=== PATIENT | female | born 1950 | race Caucasian/White ===

== ENCOUNTER 2021-11-20 11:48 | Observation (INO) ==
[2021-11-20] MEDS ORDERED: DEXTROSE 10% 250 ML BAG IV PRN (13:33)
[2021-11-20] MEDS ORDERED: GLUCAGON 1 MG VIAL IM PRN (13:33)
[2021-11-20] MEDS ORDERED: hydrALAZINE 20 MG/1 ML VIAL IV PRN (13:36)
[2021-11-20] MEDS ORDERED: DOCUSATE SODIUM 100 MG CAPSULE PO PRN (13:36)
[2021-11-20] MEDS ORDERED: ACETAMINOPHEN 325 MG TABLET PO PRN (13:36)
[2021-11-20] MEDS ORDERED: ONDANSETRON 4 MG/2 ML VIAL IV PRN (13:36)
[2021-11-20] MEDS: SODIUM CHLORIDE 0.9% 1,000 ML IV SCH (14:05)
[2021-11-20 14:37] LABS: Basophils % 0.6 % (0.0-0.8); Eosinophils % 0.3 % (0.00-10.9); Hemoglobin 7.8 GM/DL (12.0-16.0); Lymphocytes # 1.8 10*3/uL (1.4-4.0); Lymphocytes % 54.7 % (21.3-54.2); Mean Corpuscular HGB Conc 33.9 GM/DL (32-36); Mean Corpuscular Volume 91.6 FL (87-102); Monocytes # 0.4 10*3/uL (0.11-0.8); Monocytes % 12.7 % (1.7-12.7); Neutrophils % 28.7 % (38.7-73.9); Platelet Count 250 T/CUMM (130-400); Red Blood Count 2.51 MC/CUMM (3.8-5.5); Red Cell Distribution Width 20.1 % (9.3-17.3); White Blood Count 3.3 T/CUMM (4-12)
[2021-11-20 14:51] LABS: Albumin 2.7 G/DL (3.4-5.0); Bilirubin,Total 0.5 MG/DL (0.20-1.00); Calcium 7.9 MG/DL (8.5-10.1); Potassium 3.9 MMOL/L (3.5-5.1); Total Protein 6.3 G/DL (6.4-8.2)
[2021-11-20 14:55] LABS: % Iron Saturation 17.6 % (18-50); Ferritin 1612.8 ng/mL (8-252)
[2021-11-20 15:15] LABS: Folate > 24.00 NG/ML (5.38-24.0); Vitamin B12 889 PG/ML (211-911)
[2021-11-20] MEDS ORDERED: SODIUM CHLORIDE 0.9% 1,000 ML IV PRN ×2 (15:45→22:06)
[2021-11-20] MEDS ORDERED: MAGNESIUM SULF RIDER 2 GM/50 ML PREMIX IV ONE (15:46)
[2021-11-20] MEDS: INSULIN LISPRO 100 UNIT/ML SUBCUT SCH ×2 (16:22→21:33)
[2021-11-20] MEDS: CHOLECALCIFEROL 5,000 UNIT TABLET PO SCH (16:29)
[2021-11-21 01:10] LABS: Hyaline Casts,Urine 1 /LPF (0-3); Squamous Epithelial Cell,Urine Occasional /HPF (0-10)
[2021-11-21 01:11] LABS: Bilirubin,Urine Negative (Negative); Blood, Urine Negative (Negative); Glucose,Urine (UA) Negative (Negative); Ketones,Urine Negative (Negative); Nitrite,Urine Negative (Negative); Protein,Urine Negative (Negative); Urine Appearance Clear (Clear); Urine Color Yellow (Yellow); Urine Urobilinogen 0.2 eU/dL (<2.0)
[2021-11-21 05:29] LABS: Eosinophils % 0.3 % (0.00-10.9); Hematocrit 24.8 VOL% (35.7-47.0); Hemoglobin 8.2 GM/DL (12.0-16.0); Immature Granulocytes Absolute 0.09 #; Lymphocytes # 1.3 10*3/uL (1.4-4.0); Lymphocytes % 44.3 % (21.3-54.2); Mean Corpuscular HGB Conc 33.1 GM/DL (32-36); Mean Corpuscular Volume 92.2 FL (87-102); Mean Platelet Volume 10.7 FL (9.6-12.0); Monocytes # 0.6 10*3/uL (0.11-0.8); Monocytes % 18.6 % (1.7-12.7); Neutrophils % 32.8 % (38.7-73.9); Platelet Count 234 T/CUMM (130-400); Red Blood Count 2.69 MC/CUMM (3.8-5.5); Red Cell Distribution Width 19.8 % (9.3-17.3)
[2021-11-21 05:53] LABS: Band Neutrophils 2 % (0-10); Eosinophils 1 % (0-10); Hypochromia Slight; Lymphocytes 40 % (20-55); Microcytosis Slight; Platelet Estimate Adequate; Total Cells Counted 100
[2021-11-21 05:57] LABS: Albumin 2.5 G/DL (3.4-5.0); Bilirubin,Total 0.6 MG/DL (0.20-1.00); Calcium 8.3 MG/DL (8.5-10.1); Osmolality,Calculated 278.5 MOS/KG (273-304); Potassium 4.1 MMOL/L (3.5-5.1); Risk Ratio 6.09; Thyroid Stimulating Hormone 1.37 uIU/ml (0.358-3.74); Total Protein 5.7 G/DL (6.4-8.2); VLDL Cholesterol 44.4 MG/DL
[2021-11-21] MEDS ORDERED: DIPHENOXYLATE/ATROPINE 2.5-0.025 MG TABLET PO PRN (08:41)
[2021-11-21] MEDS ORDERED: ONDANSETRON 4 MG TABLET PO PRN (08:41)
[2021-11-21] MEDS: INSULIN LISPRO 100 UNIT/ML SUBCUT SCH ×4 (09:10→21:51)
[2021-11-21] MEDS: SODIUM CHLORIDE 0.9% 1,000 ML IV SCH ×3 (10:14→21:57)
[2021-11-21] MEDS: FLUCONAZOLE INJ 200 MG/100 ML PREMIX IV SCH (10:15)
[2021-11-21] MEDS: FERRIC GLUCONATE COMPLEX 125 MG in SODIUM CHLORIDE 0.9% 100 ML IV SCH (10:15)
[2021-11-21] MEDS: FLUTICASONE 50 MCG NASAL SPRAY 16 GM BOTTLE BOTH NARES SCH ×2 (10:16→21:51)
[2021-11-21] MEDS: RANOLAZINE 500 MG TABLET PO SCH ×2 (10:16→21:53)
[2021-11-21] MEDS: GABAPENTIN 100 MG CAPSULE PO SCH ×2 (10:16→21:53)
[2021-11-21] MEDS: CHOLECALCIFEROL 5,000 UNIT TABLET PO SCH (10:16)
[2021-11-21] MEDS: PANTOPRAZOLE 40 MG TABLET PO SCH (10:16)
[2021-11-22] MEDS: RANOLAZINE 500 MG TABLET PO SCH ×2 (07:43→11:02)
[2021-11-22] MEDS: SODIUM CHLORIDE 0.9% 1,000 ML IV SCH (07:43)
[2021-11-22] MEDS: GABAPENTIN 100 MG CAPSULE PO SCH ×2 (07:44→11:02)
[2021-11-22] MEDS: PANTOPRAZOLE 40 MG TABLET PO SCH ×2 (07:44→11:02)
[2021-11-22] MEDS: INSULIN LISPRO 100 UNIT/ML SUBCUT SCH (08:02)
[2021-11-22] MEDS: FLUTICASONE 50 MCG NASAL SPRAY 16 GM BOTTLE BOTH NARES SCH (08:11)
[2021-11-22 08:22] VITALS: BP 152/66
[2021-11-22] MEDS: FERRIC GLUCONATE COMPLEX 125 MG in SODIUM CHLORIDE 0.9% 100 ML IV SCH (09:15)
[2021-11-22] MEDS: CHOLECALCIFEROL 5,000 UNIT TABLET PO SCH (11:02)
[2021-11-22] MEDS: FLUCONAZOLE INJ 200 MG/100 ML PREMIX IV SCH (11:02)
[2021-11-22] MEDS ORDERED: FILGRASTIM-SNDZ 480 MCG/0.8 ML SYRINGE SUBCUT SCH (16:00)
== END 2021-11-22 12:04 | disposition home or self-care (01) ==
LOC: N.2W → SUATTDRO 12:17
PROVIDERS: ADMIT Internal Medicine; ATTEND Internal Medicine